=== PATIENT | male | born 1980 | race African-American/Black ===

== ENCOUNTER 2020-07-12 22:31 | Emergency (ER) | payer OTHER, MEDICAID ==
[~2020-07-12] VITALS: Ht 177.8 cm; Wt 95.3 kg
[2020-07-12 22:31] VITALS: BP 123/93
--- NOTE | 2020-07-12 22:31 | NUR ---
PT ARNULFO ALS. TAKEN TO BED 1
--- NOTE | 2020-07-12 22:35 | NUR ---
39 YO M BIBA FROM HOME FOR C/C OF RESPIRATORY DISTRESS POST INHALING METH 3 HOURS AGO. PT WAS SATING AT 91% ON ROOM AIR WITH A RR OF 38. POST ALBUTEROL INH IN ROUTE PT IS NOW SATING AT 98% ON ROOM AIR WITH A RR OF 20. LUNG SOUNDS CLEAR THROUGHOUT. PT DENIES FEVER, COUGH, N/V/D, AND CONTACT WITH COVID + PTS. NO MED HX NO RX NKA Addendum: 07/12/20 at 2314 by [email or web address] 39 YO M BIBA FROM HOME FOR C/C OF RESPIRATORY DISTRESS POST INHALING METH 3 HOURS AGO. PT WAS SATING AT 91% ON ROOM AIR WITH A RR OF 38. POST ALBUTEROL INH IN ROUTE PT IS NOW SATING AT 98% ON ROOM AIR WITH A RR OF 20. BILATERAL WHEEZING AUSCULTATED IN MID LOBES DURING EXPIRATRION. PT DENIES FEVER, COUGH, N/V/D, AND CONTACT WITH COVID + PTS. NO MED HX NO RX NKA
--- NOTE | 2020-07-12 22:57 | NUR ---
Dr. Gonzalez examining patient.
[2020-07-12] MEDS ORDERED: predniSONE 20 MG TAB PO ONE (23:00)
[2020-07-12] MEDS ORDERED: ALBUTEROL HFA MDI 90 MCG/ACTUATION 8 GM INH ONE (23:00)
--- NOTE | 2020-07-12 23:10 | NUR ---
RAD AT BEDSIDE
--- NOTE | 2020-07-12 23:14 | NUR ---
RT AT BEDSIDE
--- NOTE | 2020-07-12 23:41 | NUR ---
PT ASLEEP IN BED. EQUAL CHEST RISE AND FALL. BED LOCKED AND IN LOWEST POSITION.
--- NOTE | 2020-07-13 00:45 | NUR ---
LAB AT BEDSIDE
--- NOTE | 2020-07-13 00:50 | NUR ---
PTS MOTHER "STEVEN MADISON" CAME TO ER LOBBY TO GET UPDATE ON PT. PLAN OF CARE EXPLAINED. ] EXPLAINED THAT WE WILL CALL HER IN THE MORNING WHEN THE PT IS DISCHARGED
[2020-07-13 00:55] LABS: BASOPHILS # (AUTO) 0.1 K/uL (0.00-0.22); BASOPHILS % (AUTO) 0.7 % (0.0-2.0); EOSINOPHILS # (AUTO) 0.1 K/uL (0-0.4); EOSINOPHILS % (AUTO) 1.8 % (0.0-4.0); HEMATOCRIT 41.5 % (36-52); LYMPHOCYTES # (AUTO) 1.2 K/uL (2.0-11.5); MEAN CORPUSCULAR HEMOGLOBIN 33 pg (27-31); MEAN CORPUSCULAR HGB CONC 34 g/dL (33-37); MONOCYTES # (AUTO) 0.6 K/uL (0.8-1.0); MONOCYTES % (AUTO) 7.6 % (1.7-9.3); NEUTROPHILS % (AUTO) 74.9 % (42.2-75.2); PLATELET COUNT (AUTO) 253 K/uL (140-450); RED BLOOD CELL COUNT(AUTO) 4.28 MIL/uL (4.20-6.10)
[2020-07-13 01:04] LABS: ANION GAP 12.4 (8-16); CARBON DIOXIDE 28.4 mmol/L (21-32); CREATININE 1.1 mg/dL (0.6-1.3); POTASSIUM 3.8 mmol/L (3.5-5.1)
--- NOTE | 2020-07-13 02:51 | NUR ---
PT POSITIONED FOR COMFORT. BLANKET PROVIDED AND NON-SLIP SOCKS PROVIDED. EQUAL CHEST RISE AND FALL. NO VISABLE RESP DISTRESS SEEN. O2 SAT 98% ON ROOM AIR. ENCOURAGED PT TO SLEEP. BED LOCKED AND IN LOWEST POSITION. SIDE RAILS X2.
--- NOTE | 2020-07-13 04:58 | NUR ---
CALLED PTS MOTHER TO [employer]IN[employer] PT
[2020-07-13 05:40] VITALS: BP 114/71
--- NOTE | 2020-07-13 05:40 | NUR ---
Patient discharged with v/s stable. Written and verbal after care instructions given and explained. Patient alert, oriented and verbalized understanding of instructions. Ambulatory with steady gait. All questions addressed prior to discharge. ID band removed. Patient advised to follow up with PMD. Rx of PREDNISONE, ALBUTEROL given. Patient educated on indication of medication including possible reaction and side effects. Opportunity to ask questions provided and answered.
== END 2020-07-13 05:40 | disposition home or self-care (01) ==
LOC: MED 22:31
DX: J45.909 Unspecified asthma, uncomplicated (principal); F15.10 Other stimulant abuse, uncomplicated
CPT/HCPCS: 36415; 71045; 80048; 85025; 99284; J3535; J7512; 99283